=== PATIENT | male | born 1990 | race Caucasian/White ===

== ENCOUNTER 2021-01-24 16:07 | Emergency (ER) | payer SELFPAY ==
[2021-01-24 16:07] VITALS: BP 150/87; PULSE 118; RESP 16; TEMP 36.6; O2SAT 98; BMI 21.4
--- NOTE | 2021-01-24 16:58 | EDS_ITS ---
HPI HPI - GI History of Present Illness Chief Complaint: GI Bleed Abdominal Pain/Flank Pain Onset: Days (4-5) Context: Gradual Onset Timing: Intermittent Quality: Cramping Location: - (lower abd) Current Severity: Mild Maximum Severity: Mild Worsened by: Nothing Relieved by: Nothing Nausea/Vomiting/Emesis GI Symptom: Positive for Nausea and Vomiting Onset: Days (4-5) Quality: Positive for - (dark initially, but drank coffee that AM); Negative for Blood streaks Severity: Moderate Diarrhea/Melena/Hematochezia GI Symptom: Positive for Diarrhea and Hematochezia; Negative for Melena Associated Symptoms Associated Symptoms: Negative for Dysuria, Frequency, Hematuria and Urgency Narrative Narrative: 4 or 5 days ago, patient started having nausea, vomiting, lower abdominal cramping, and diarrhea. His was having similar symptoms but not to the same severity, this started the same evening after they both ate at a local [employer] restaurant. Neither 1 developed any fevers or chills. For the last 3 days, he has felt better with no vomiting and few bouts of loose stool, but today nausea, cramping, diarrhea returned along with 3 episodes of small amounts of bright red blood per rectum mostly seen on toilet paper. He denies any systemic symptoms or fevers/chills although he is felt a little fatigued. No lightheadedness or orthostatic symptoms. No past medical history or history of bowel problems. PFSH PFSH Medical History Alcohol abuse Smoker no medical history Home Medications dicyclomine 20 mg PO TID PRN #14 tab 01/24/21 [Rx Last Taken Unknown] ondansetron 8 mg PO Q8H PRN PRN #20 tab 01/24/21 [Rx Last Taken Unknown] Allergy/AdvReac Type Severity Reaction Status Date / Time No Known Allergies Allergy Verified 01/24/21 16:09 Social History (Updated 01/24/21 @ 17:[address] Obed Perez MD) Smoking Status: Heavy Smoker (>10/day) alcohol intake: current alcohol intake frequency: a few times a week Alcohol type: beer and hard liquor ROS ROS ED Constitutional Constitutional ED: Reports malaise; Denies chills or fever(s) Eyes Eyes: Denies change in vision or diplopia ENT ENT ED: Denies rhinorrhea or sore throat Cardiovascular Cardiovascular: Denies chest pain or palpitations Respiratory/Chest Respiratory/Chest: Denies cough or dyspnea Gastrointestinal Gastrointestinal: Reports as per HPI, abdominal pain, diarrhea, nausea, rectal bleeding and vomiting; Denies hematemesis Genitourinary Genitourinary ED: Denies dysuria or hematuria Musculoskeletal Musculoskeletal: Denies back pain or neck pain Integumentary Denies abscess or rash Neurologic Neurologic: Denies headache(s), paresthesias or weakness Psychiatric Psychiatric: Denies anxiety or suicidal thoughts EXAM Physical Exam Const Vital Signs: 01/24/21 16:07 Temperature 97.8 F Temperature Source Temporal Pulse Rate 118 H Respiratory Rate 16 Blood Pressure 150/87 H Blood Pressure Mean 108 Pulse Ox 98 Oxygen Delivery Method Room Air Positive well nourished and well developed General Appearance ED: well developed and NAD HEENT Reports moist mucous membranes normocephalic and atraumatic Eyes PERRL and EOMs intact bilaterally Neck full ROM and supple Resp normal respiratory effort and clear to auscultation bilaterally Cardio regular rate, regular rhythm and no murmurs GI non-tender and non-distended GI Narrative: Rectal exam, no tenderness, no hemorrhoids, no active bleeding Auscultation: normoactive bowel sounds Palpation: soft Back/Spine no CVA tenderness General Back: other FROM Extremity normal to inspection General Extremety ED: Negative for edema, pulses abnormal or tenderness General Extremity: Negative for edema or pulses abnormal Neuro oriented x3, CN's II-XII intact bilaterally, no sensory deficits noted and gait normal Sensorium / Orientation: awake and alert Motor Exam: strength 5/5 throughout Psych mental status grossly normal and thought process normal Skin no rashes or lesions noted and no wounds MDM MDM MDM Narrative Medical decision making narrative: Labs are normal patient is not orthostatic, and is clinically well. I do not think a CT is necessary or will help diagnose why he is having minor rectal bleeding with vomiting and diarrhea. Differential includes noninfectious causes such as colitis, Crohn's, as well as infectious causes including viral and bacterial causes. If he indeed has a bacterial etiology of this such as foodborne illness right now, no antibiotics are indicated since he is immunocompetent and has been having symptoms for less than 1 week. We discussed reasons to return, he tried multiple times to have a stool here in the ER for testing but he was unable and wants to leave which I think is fine. He was given Zofran and Bentyl which helped and was given prescriptions for those, he does not have a PCP so he was referred to the next doctor on the list Dr. Romero, and given a kit for collection at home along with a prescription for the test. Lab Data Attestation: I reviewed the patient's lab results. Labs: Laboratory Results - last 24 hr 01/24/21 01/24/21 17:10 17:10 WBC 12.0 H RBC 4.83 Hgb 14.6 Hct 43.0 MCV 89.0 MCH 30.2 MCHC 34.0 RDW Std Deviation 41.5 RDW Coeff of Vinicio 12.7 Plt Count 237 MPV 11.2 Immature Gran % (Auto) 0.300 Neut % (Auto) 72.0 H Lymph % (Auto) 18.6 L [place] % (Auto) 5.5 Eos % (Auto) 2.8 Baso % (Auto) 0.8 Absolute Neuts (auto) 8.6 H Absolute Lymphs (auto) 2.23 Nucleated RBC % 0 Sodium 138 Potassium 4.2 Chloride 106 Carbon Dioxide 26.0 Anion Gap 6 BUN 17 Creatinine 1.06 Estim Creat Clear Calc 95.66 Est GFR (MDRD) Af Amer 106 Est GFR (MDRD) Non-Af 87 BUN/Creatinine Ratio 16.0 Glucose 92 Calcium 9.0 Total Bilirubin 0.30 AST 25 ALT 35 Alkaline Phosphatase 62 Total Protein 7.5 Albumin 4.1 Globulin 3.4 Albumin/Globulin Ratio 1.2 Discharge Plan Triage Chief Complaint: GI Bleed ED Provider: Obed Perez Dx/Rx/DC Orders Clinical Impression: Gastroenteritis, Hematochezia Instructions: Understanding Rectal Bleeding, ED Gastroenteritis, Viral (Adult) Prescriptions: New dicyclomine 20 mg tablet 20 mg PO TID PRN (Reason: abdominal cramping) Qty: 14 RF: 0 ondansetron 4 mg tablet,disintegrating 8 mg PO Q8H PRN PRN (Reason: Nausea) Qty: 20 RF: 0 Other Ambulatory Orders: ENTERIC PATHOGEN PANEL STOOL (Routine) Timeframe: 3 Days Facility: [facility] - Location: Laboratory Ordered By: Dr. Obed Perez Primary Care Provider: Care Physician,No Primary Referrals: Jennifer Romero DO [STAFF PHYSICIAN] - 3-5 Days if not improving Care Physician,No Primary [Primary Care Provider] - Disposition Disposition: Home, self care
[2021-01-24] MEDS: Dicyclomine 10 MG Capsule 20 MG PO (17:13)
[2021-01-24] MEDS: Ondansetron ODT 4 MG Tablet 8 MG PO (17:14)
[2021-01-24 17:26] LABS: Absolute Lymphocyte Count 2.23 X10^3/uL (0.83-4.51); Absolute Neutrophil Count 8.6 X10^3/uL (2.0-7.7); Basophil% 0.8 % (0-1); Eosinophil# 0.34 X10^3/uL; Eosinophils% 2.8 % (0-5); Hemoglobin 14.6 g/dL (13.0-16.5); Lymphocyte # 2.23 X10^3/ul (0.83-4.51); Lymphocyte % 18.6 % (19-41); Mean Corpuscular Hgb 30.2 pg (27.0-32.0); Mean Platelet Vol. 11.2 fl (6.2-12.0); Monocyte# 0.66 X10^3/uL; Monocyte% 5.5 % (0-10); NRBC Flagged by Analyzer 0 % (0-5); Neutrophil # 8.61 X10^3/uL (2.7-7.7); Platelet Count 237 K/mm3 (150-450); RBC Distribution Width CV 12.7 % (11.6-14.6); RBC Distribution Width SD 41.5 fl (35.1-43.9); Red Blood Count 4.83 M/mm3 (4.6-6.2)
[2021-01-24 17:43] LABS: ALB/GLOB Ratio 1.2 RATIO (0.9-2.4); AST(SGOT) 25 U/L (15-37); Alanine Aminotransfer ALT/SGPT 35 U/L (16-61); Albumin, Serum 4.1 g/dL (3.2-5.0); Alkaline Phosphatase 62 U/L (45-117); Anion Gap 6 (5-15); BUN 17 mg/dL (7-18); Chloride 106 mmol/L (98-107); Creatinine, Serum 1.06 mg/dL (0.70-1.30); EST Glomerular Filtration Rate 87 mL/min (>60); Est Glom Filt Rate - Afr Amer 106 mL/min (>60); Estimated Creatinine Clearance 95.66 ml/min; Globulin 3.4 g/dL (2.2-4.2); Glucose 92 mg/dL (74-106); Potassium 4.2 mmol/L (3.5-5.1); Protein, Total 7.5 g/dL (6.4-8.2); Sodium Level 138 mmol/L (136-145)
[2021-01-24 19:16] VITALS: BP 133/73; PULSE 58; RESP 14; O2SAT 100
== END 2021-01-24 19:18 | disposition home or self-care (01) ==
PROVIDERS: Emergency Provider Emergency Medicine
DX: K52.9 Noninfective gastroenteritis and colitis, unspecified (principal); K92.1 Melena; Z87.891 Personal history of nicotine dependence
CPT/HCPCS: 80053; 85025; 99283; A4216